=== PATIENT | female | born 1990 | race African-American/Black ===

== ENCOUNTER 2021-07-14 10:23 | Emergency (ER) | payer OTHER ==
[2021-07-14 11:07] VITALS: BP 134/89; PULSE 77; TEMP 98; BMI 34.7
[2021-07-14] MEDS ORDERED: KETOROLAC TROMETHAMINE 60 MG/2 ML VIAL IM ONE (12:37)
[2021-07-14] MEDS ORDERED: DEXAMETHASONE LIQUID 0.5 MG/5 ML PO ONE (12:37)
[2021-07-14] MEDS ORDERED: DEXAMETHASONE SOD PHOSPHATE 10 MG/1 ML VIAL ONE (12:39)
[2021-07-14] MEDS ORDERED: KETOROLAC TROMETHAMINE 30 MG/1 ML VIAL ONE (12:39)
[2021-07-14 13:40] LABS: THROAT:GRP A STREP NOT DETECTED (NOTDETECTED)
[2021-07-14 14:28] LABS: SARS COV-2 MOLECULAR Negative (Negative)
== END 2021-07-14 13:17 | disposition home or self-care (01) ==
LOC: JERFT 10:23
PROC: 3E0234Z Introduction of Serum, Toxoid and Vaccine into Muscle, Percutaneous Approach (ICD-10-PCS; principal; 2021-07-14)
DX: M25.511 Pain in right shoulder (principal); J02.9 Acute pharyngitis, unspecified
CPT/HCPCS: 73030-TC-RT-FY; 87651; 99284-25; C9803; U0003; U0005

== ENCOUNTER 2022-03-31 07:19 | Emergency (ER) | payer OTHER ==
[2022-03-31 07:30] VITALS: BP 128/88; PULSE 96; RESP 20; TEMP 98.4; BMI 33.6
[2022-03-31] MEDS ORDERED: IBUPROFEN 600 MG TABLET (FP) PO ONE ×2 (08:23→08:28)
== END 2022-03-31 08:50 | disposition home or self-care (01) ==
LOC: JER 07:19 → JERFT 07:19
DX: M54.89 Other dorsalgia (principal)
CPT/HCPCS: 99283-25

== ENCOUNTER 2022-06-06 05:40 | Emergency (ER) | payer OTHER ==
[2022-06-06 06:05] VITALS: BP 130/87; PULSE 93; RESP 18; TEMP 98.2; BMI 33.9
[2022-06-06] MEDS ORDERED: ACETAMINOPHEN 325 MG TABLET (FP) PO ONE (09:08)
[2022-06-06] MEDS ORDERED: IBUPROFEN 400 MG TABLET (FP) PO ONE ×2 (09:08→09:18)
[2022-06-06] MEDS ORDERED: ACETAMINOPHEN 325 MG TABLET (FP) ONE (09:18)
[2022-06-06] MEDS ORDERED: LIDOCAINE 1%/EPI 1:100000 (20 ML MULTI DOSE VIAL) ONE (11:06)
[2022-06-06] MEDS ORDERED: CEPHALEXIN MONOHYDRATE 500 MG CAPSULE (UD) PO ONE (11:48)
[2022-06-06] MEDS ORDERED: SULFAMETHOXAZOLE/TRIMETHOPRIM 800MG/160MG D.S. TABLET PO ONE (11:49)
== END 2022-06-06 12:27 | disposition home or self-care (01) ==
LOC: JER 05:40
PROC: 0H98XZZ Drainage of Buttock Skin, External Approach (ICD-10-PCS; principal; 2022-06-06)
DX: L02.31 Cutaneous abscess of buttock (principal)
CPT/HCPCS: 76882-TC-RT-FY; 99283-25

== ENCOUNTER 2022-12-26 20:01 | Inpatient (IN) | payer OTHER ==
[2022-12-26 20:15] VITALS: BMI 33.9
[2022-12-26] MEDS ORDERED: ACETAMINOPHEN 1000 MG/100 ML BAG IVPB ONE (22:52)
[2022-12-26] MEDS ORDERED: LACTATED RINGERS SOLUTION 1000 ML INFUS.BAG IV ONE (22:52)
[2022-12-26 22:55] LABS: BASO % 1.2 % (0-2.0); EOS % 1.8 % (0-4.5); HEMATOCRIT 38.2 % (32.4-45.2); HEMOGLOBIN 12.8 GM/dL (10.7-15.3); LYMPH % 25.5 % (8-40); MCHC 33.5 g/dl (32.0-36.0); MEAN CELL VOLUME 80.6 fl (80-96); MEAN PLT VOLUME 8.1 fl (7.5-11.1); MONO % 9.5 % (3.8-10.2); PLATELET COUNT 283 10^3/uL (134-434); RBC 4.75 M/mm3 (3.60-5.2); RDW 13.7 % (11.6-15.6); WHITE BLOOD COUNT 6.2 K/mm3 (4.0-10.0)
[2022-12-26 23:02] LABS: INR 1.18 (0.83-1.09); PROTHROMBIN TIME (PATIENT) 13.7 SEC (9.7-13.0)
[2022-12-26] MEDS ORDERED: ACETAMINOPHEN INJECTION 100 ML IVPB ONE (23:04)
[2022-12-26 23:05] LABS: ACTIVATED PTT 32.5 SECONDS (25.2-36.5)
[2022-12-26 23:23] LABS: POTASSIUM 3.8 mmol/L (3.5-5.1)
[2022-12-26 23:25] LABS: ALBUMIN 3.5 g/dl (3.4-5.0); BLOOD UREA NITROGEN 11.5 mg/dL (7-18); CALCIUM 9.4 mg/dL (8.5-10.1)
[2022-12-26 23:29] LABS: CREATININE 0.7 mg/dL (0.55-1.3)
[2022-12-26 23:30] LABS: BILIRUBIN,TOTAL 0.5 mg/dL (0.2-1); TOT PROT 7.5 g/dl (6.4-8.2)
[2022-12-26 23:42] LABS: ERYTHROCYTE SEDIMENTATION RATE 72 mm/hr (0-20)
[2022-12-27] MEDS ORDERED: VANCOMYCIN 1 GM in D5W (PRE-DOCKED) 1,000 MG/250 ML (RESTRICTED TO ID ONLY IVPB ONE (00:18)
[2022-12-27] MEDS ORDERED: VANCOMYCIN/WATER FOR INJ (PEG) 1,000 MG/200 ML BAG IVPB ONE (00:44)
[2022-12-27] MEDS ORDERED: FAMOTIDINE 20 MG/50 ML IVPB 20 MG/50 ML MG IVPB ONE ×2 (00:54)
[2022-12-27] MEDS ORDERED: DOCUSATE SODIUM 100 MG CAPSULE (FP) PO PRN (04:46)
[2022-12-27] MEDS ORDERED: ACETAMINOPHEN 1000 MG/100 ML BAG IVPB PRN (04:58)
[2022-12-27 05:52] LABS: BASO % 1.3 % (0-2.0); HEMATOCRIT 33.6 % (32.4-45.2); HEMOGLOBIN 10.8 GM/dL (10.7-15.3); LYMPH % 31.4 % (8-40); MCH 26.4 pg (25.7-33.7); MCHC 32.1 g/dl (32.0-36.0); MEAN CELL VOLUME 82.3 fl (80-96); MEAN PLT VOLUME 8.2 fl (7.5-11.1); NEUT % 54.3 % (42.8-82.8); PLATELET COUNT 245 10^3/uL (134-434); RBC 4.09 M/mm3 (3.60-5.2); RDW 13.5 % (11.6-15.6); WHITE BLOOD COUNT 5.7 K/mm3 (4.0-10.0)
[2022-12-27] MEDS: DEXTROSE 5%-NORMAL SALINE 1,000 ML IV SCH ×2 (06:22→13:42)
[2022-12-27] MEDS ORDERED: VANCOMYCIN PREMIX 1.5 GM 1,500 MG/300 ML BAG IVPB SCH (13:00)
[2022-12-27] MEDS ORDERED: LIDO 2%/EPI 1:200000 PRESRVFRE (20 ML SDVIAL) PNB ONE (13:53)
[2022-12-27] MEDS ORDERED: VANCOMYCIN HCL 1,500 MG in DEXTROSE 5%-WATER - 250 ML IVPB SCH (14:00)
[2022-12-27] MEDS ORDERED: TETANUS AND DIPHTHERIA TOXOID 0.5 ML DISP.SYRIN IM ONE (14:15)
[2022-12-27] MEDS: CEFTRIAXONE 2 GM in DEXTROSE 5%-WATER 100 ML IVPB SCH (15:05)
[2022-12-27] MEDS: VANCOMYCIN/WATER 1250 MG 1,250 MG/250 ML BAG IVPB SCH (15:58)
[2022-12-27] MEDS: BACITRACIN/POLYMYXIN B SULFATE 15 GM TUBE TP SCH (16:25)
[2022-12-27] MEDS: TETANUS IMMUNE GLOBULIN 250 UNITS DISP.SYRIN IM ONE ×2 (18:23→18:24)
[2022-12-28] MEDS: VANCOMYCIN/WATER 1250 MG 1,250 MG/250 ML BAG IVPB SCH ×2 (01:03→13:26)
[2022-12-28] MEDS ORDERED: ACETAMINOPHEN 325 MG TABLET (FP) PO PRN (04:46)
[2022-12-28] MEDS: DEXTROSE 5%-NORMAL SALINE 1,000 ML IV SCH ×2 (06:27→11:05)
[2022-12-28 09:45] LABS: POTASSIUM 4.1 mmol/L (3.5-5.1)
[2022-12-28 09:51] LABS: BLOOD UREA NITROGEN 5.8 mg/dL (7-18); CALCIUM 8.2 mg/dL (8.5-10.1)
[2022-12-28] MEDS: CEFTRIAXONE 2 GM in DEXTROSE 5%-WATER 100 ML IVPB SCH (09:51)
[2022-12-28 09:53] LABS: CREATININE 0.6 mg/dL (0.55-1.3)
[2022-12-28] MEDS: BACITRACIN/POLYMYXIN B SULFATE 15 GM TUBE TP SCH (09:54)
[2022-12-28 09:55] LABS: BILIRUBIN,TOTAL 0.4 mg/dL (0.2-1); TOT PROT 6.1 g/dl (6.4-8.2)
[2022-12-28 09:57] LABS: ALBUMIN 2.8 g/dl (3.4-5.0)
[2022-12-28] MEDS ORDERED: BACITRACIN/POLYMYXIN B SULFATE 15 GM TUBE TP SCH (11:58)
[2022-12-28 13:38] LABS: BASO % 0.9 % (0-2.0); EOS % 3.2 % (0-4.5); HEMOGLOBIN 11.1 GM/dL (10.7-15.3); LYMPH % 39.4 % (8-40); MCH 26.3 pg (25.7-33.7); MCHC 31.8 g/dl (32.0-36.0); MEAN CELL VOLUME 82.9 fl (80-96); MEAN PLT VOLUME 9.3 fl (7.5-11.1); MONO % 11.9 % (3.8-10.2); NEUT % 44.6 % (42.8-82.8); PLATELET COUNT 246 10^3/uL (134-434); RBC 4.22 M/mm3 (3.60-5.2); RDW 13.2 % (11.6-15.6); WHITE BLOOD COUNT 3.8 K/mm3 (4.0-10.0)
[2022-12-28] MEDS ORDERED: oxyCODONE HCL 5 MG TABLET PO PRN (15:51)
[2022-12-28] MEDS ORDERED: HEPARIN NA (PORCINE) 5,000 UNITS/ML 1ML VIAL SQ SCH (22:00)
[2022-12-28 23:57] VITALS: RESP 18
[2022-12-29] MEDS: VANCOMYCIN/WATER 1250 MG 1,250 MG/250 ML BAG IVPB SCH (01:16)
[2022-12-29 06:13] VITALS: PULSE 60
[2022-12-29 07:54] LABS: BASO % 0.8 % (0-2.0); EOS % 2.6 % (0-4.5); HEMATOCRIT 35.5 % (32.4-45.2); HEMOGLOBIN 11.7 GM/dL (10.7-15.3); MCH 26.5 pg (25.7-33.7); MEAN CELL VOLUME 80.4 fl (80-96); MEAN PLT VOLUME 8.2 fl (7.5-11.1); NEUT % 55.6 % (42.8-82.8); PLATELET COUNT 269 10^3/uL (134-434); RBC 4.41 M/mm3 (3.60-5.2); RDW 13.4 % (11.6-15.6)
[2022-12-29 08:11] LABS: POTASSIUM 3.9 mmol/L (3.5-5.1)
[2022-12-29 08:14] LABS: CALCIUM 8.3 mg/dL (8.5-10.1)
[2022-12-29 08:15] LABS: ALBUMIN 2.9 g/dl (3.4-5.0); MAGNESIUM 1.7 mg/dL (1.8-2.4)
[2022-12-29 08:17] LABS: BLOOD UREA NITROGEN 5.9 mg/dL (7-18)
[2022-12-29 08:18] LABS: CREATININE 0.6 mg/dL (0.55-1.3)
[2022-12-29 08:20] LABS: BILIRUBIN,TOTAL 0.4 mg/dL (0.2-1); TOT PROT 6.3 g/dl (6.4-8.2)
[2022-12-29] MEDS ORDERED: ENOXAPARIN NA (PORCINE) 40 MG/0.4 ML DISP.SYRIN SQ SCH (10:00)
[2022-12-29] MEDS: CEFTRIAXONE 2 GM in DEXTROSE 5%-WATER 100 ML IVPB SCH (10:33)
[2022-12-29] MEDS: DEXTROSE 5%-NORMAL SALINE 1,000 ML IV SCH (14:47)
[2022-12-29 15:45] VITALS: BP 104/64; TEMP 99.1
== END 2022-12-29 15:31 | disposition home or self-care (01) | DRG 383 ==
LOC: JER 20:01 → JERBED 12-27 01:05 → J8W 12-27 08:37
PROVIDERS: ADMIT Internal Medicine; ATTEND Nurse Practitioner Acute Care
PROC: 0Y9J3ZZ Drainage of Left Lower Leg, Percutaneous Approach (ICD-10-PCS; principal; 2022-12-27)
DX: L02.416 Cutaneous abscess of left lower limb (principal); D48.7 Neoplasm of uncertain behavior of other specified sites; L03.116 Cellulitis of left lower limb
CPT/HCPCS: 0241U-QW; 36415; 73590-TC-LT-FY; 75635-TC; 80048; 80053; 83735; 84703; 85025; 85610; 85651; 85730; 86140; 86850; 86900; 86901; 87040; 87070; 87205; 93005; 93010; 97116-GP; 97161-GP; 99285-25; G0480; J1670; Q9967

== ENCOUNTER 2023-01-08 10:44 | Observation (INO) | payer OTHER ==
[2023-01-08] MEDS ORDERED: LIDOCAINE 1%/EPI 1:100000 (50 ML MULTI DOSE VIAL) ONE (12:18)
[2023-01-08 13:18] LABS: BASO % 1.2 % (0-2.0); EOS % 1.7 % (0-4.5); HEMATOCRIT 36.1 % (32.4-45.2); HEMOGLOBIN 11.9 GM/dL (10.7-15.3); MCH 26.6 pg (25.7-33.7); MCHC 33.1 g/dl (32.0-36.0); MEAN CELL VOLUME 80.5 fl (80-96); MEAN PLT VOLUME 8.3 fl (7.5-11.1); MONO % 10.2 % (3.8-10.2); NEUT % 53.9 % (42.8-82.8); PLATELET COUNT 244 10^3/uL (134-434); RBC 4.49 M/mm3 (3.60-5.2); WHITE BLOOD COUNT 4.3 K/mm3 (4.0-10.0)
[2023-01-08 13:24] LABS: INR 1.07 (0.83-1.09); PROTHROMBIN TIME (PATIENT) 12.4 SEC (9.7-13.0)
[2023-01-08 13:26] LABS: ACTIVATED PTT 32.1 SECONDS (25.2-36.5)
[2023-01-08 14:11] LABS: BLOOD UREA NITROGEN 12.2 mg/dL (7-18); CREATININE 0.7 mg/dL (0.55-1.3)
[2023-01-08 14:12] LABS: ALBUMIN 3.2 g/dl (3.4-5.0); BILIRUBIN,TOTAL 0.3 mg/dL (0.2-1); CALCIUM 8.7 mg/dL (8.5-10.1); POTASSIUM 4.2 mmol/L (3.5-5.1); TOT PROT 6.7 g/dl (6.4-8.2)
[2023-01-08] MEDS ORDERED: SODIUM CHLORIDE 1,000 ML IV SCH (15:15)
[2023-01-08] MEDS ORDERED: oxyCODONE HCL 5 MG TABLET PO PRN (15:19)
[2023-01-08] MEDS ORDERED: AMOX TR/POT CLAV 875MG/125MG TABLETS (FP) PO SCH (15:22)
[2023-01-08] MEDS ORDERED: NALOXONE HCL 0.4 MG/ML VIAL IVPUSH PRN (16:03)
[2023-01-08 16:11] VITALS: BMI 33.8
[2023-01-08] MEDS: ACETAMINOPHEN 1000 MG/100 ML BAG IVPB SCH ×2 (17:52→21:12)
[2023-01-08] MEDS ORDERED: AMOX TR/POT CLAV 875MG/125MG TABLETS (FP) PO ONE (22:00)
[2023-01-09] MEDS: ACETAMINOPHEN 1000 MG/100 ML BAG IVPB SCH ×2 (03:00→11:05)
[2023-01-09 05:11] VITALS: TEMP 98.1
[2023-01-09 08:41] VITALS: BP 123/58; PULSE 58; RESP 16
[2023-01-09 09:53] LABS: HEMATOCRIT 36.5 % (32.4-45.2); HEMOGLOBIN 11.8 GM/dL (10.7-15.3); MCH 26.4 pg (25.7-33.7); MCHC 32.4 g/dl (32.0-36.0); MEAN CELL VOLUME 81.5 fl (80-96); MEAN PLT VOLUME 8.8 fl (7.5-11.1); PLATELET COUNT 245 10^3/uL (134-434); RBC 4.48 M/mm3 (3.60-5.2); RDW 13.7 % (11.6-15.6); WHITE BLOOD COUNT 4.4 K/mm3 (4.0-10.0)
[2023-01-09] MEDS ORDERED: ENOXAPARIN NA (PORCINE) 40 MG/0.4 ML DISP.SYRIN SQ SCH (10:00)
== END 2023-01-09 12:44 | disposition home or self-care (01) ==
LOC: JER 10:44 → JERBED 12:07 → J6S 15:48
PROVIDERS: ADMIT Internal Medicine; ATTEND Internal Medicine
PROC: 0Y9J0ZZ Drainage of Left Lower Leg, Open Approach (ICD-10-PCS; principal; 2023-01-08)
PROC: 3E033NZ Introduction of Analgesics, Hypnotics, Sedatives into Peripheral Vein, Percutaneous Approach (ICD-10-PCS; 2023-01-08)
PROC: 3E023GC Introduction of Other Therapeutic Substance into Muscle, Percutaneous Approach (ICD-10-PCS; 2023-01-08)
PROC: 3E0337Z Introduction of Electrolytic and Water Balance Substance into Peripheral Vein, Percutaneous Approach (ICD-10-PCS; 2023-01-08)
DX: R60.0 Localized edema (principal); S80.12XS Contusion of left lower leg, sequela; X58.XXXS Exposure to other specified factors, sequela; Z91.013 Allergy to seafood; Z91.041 Radiographic dye allergy status; Z72.0 Tobacco use
CPT/HCPCS: 10140; 36415; 80053; 84703; 85025; 85027; 85610; 85730; 86850; 86900; 86901; 93005; 93010; 96372; 96374; 99285-25; G0378

== ENCOUNTER 2023-01-15 19:14 | Emergency (ER) | payer OTHER ==
[2023-01-15 19:19] VITALS: BP 130/89; PULSE 68; RESP 18; TEMP 98.4; BMI 33.0
[2023-01-16] MEDS ORDERED: ACETAMINOPHEN 500 MG TABLET (FP) PO ONE (00:05)
[2023-01-16] MEDS ORDERED: ACETAMINOPHEN 500 MG TABLET (FP) ONE (00:06)
== END 2023-01-16 01:41 | disposition home or self-care (01) ==
LOC: JERFT 19:14 → JER 19:14
DX: L76.32 Postprocedural hematoma of skin and subcutaneous tissue following other procedure (principal)
CPT/HCPCS: 76882-TC-RT-FY; 93971-TC; 99284-25